=== PATIENT | male | born 1975 | race Caucasian/White ===

== ENCOUNTER 2018-02-21 11:07 | Emergency (ER) | payer SELFPAY ==
[~2018-02-21] VITALS: Ht 180.3 cm; Wt 68.2 kg
[2018-02-21] MEDS ORDERED: CARBAMIDE PEROXIDE EAR DROPS 6.5%, 15ML ONE (12:20)
--- NOTE | 2018-02-21 12:24 | NUR ---
DROPS PLACED IN EARS. EARS TO BE IRRIGATED
[2018-02-21] MEDS ORDERED: CARBAMIDE PEROXIDE EAR DROPS 6.5%, 15ML EACH EAR ONE (12:30)
--- NOTE | 2018-02-21 13:03 | NUR ---
TECH AT BEDSIDE FOR IRRIGATION
--- NOTE | 2018-02-21 13:48 | NUR ---
IRRIGATION COMPLETE, AWAITING DC PAPERS AT THSI TIME
--- NOTE | 2018-02-21 14:01 | NUR ---
PA TO BEDSIDE TO RECHECK PT
== END 2018-02-21 14:08 | disposition home or self-care (01) ==
LOC: ED 14:00
DX: H61.23 Impacted cerumen, bilateral (principal)
CPT/HCPCS: 69209; 99282

== ENCOUNTER 2018-09-20 17:12 | Emergency (ER) | payer SELFPAY ==
[~2018-09-20] VITALS: Ht 180.3 cm; Wt 65.6 kg
[2018-09-20 17:15] VITALS: BP 105/68
== END 2018-09-20 18:13 | disposition home or self-care (01) ==
LOC: ED 18:07
DX: S90.31XA Contusion of right foot, initial encounter (principal); V19.60XA Unspecified pedal cyclist injured in collision with unspecified motor vehicles in traffic accident, initial encounter; Y93.89 Activity, other specified; Y92.410 Unspecified street and highway as the place of occurrence of the external cause; Y99.8 Other external cause status
CPT/HCPCS: 99283